=== PATIENT | male | born 2000 | race Hispanic/Latino ===

== ENCOUNTER 2022-09-29 22:02 | Emergency (ER) | payer OTHER, SELFPAY ==
--- NOTE | ~2022-09-29 | XR_ITS ---
EXAMINATION: XR chest 2V Exam Date/Time: 09/29/2022 22:15 DECK SPECIALIST HISTORY: left sided CP FOR 1 DAY Comparison: None available. RESULT: Lines, tubes, and devices: None. Lungs and pleura: Clear. Cardiomediastinal silhouette: Normal. Other: No acute osseous or upper abdominal finding. IMPRESSION: No acute cardiopulmonary process. Reviewed, dictated and finalized at location [facility]. SPECIALIST
--- NOTE | ~2022-09-29 | CT_ITS ---
CT Abdomen and Pelvis with contrast. History: Abnormal LFTs. Spiral CT of the abdomen and pelvis was performed after the administration of intravenous contrast. 1 00 cc of Omnipaque 350 was administered intravenously without complication. Dose reduction technique was used on this scan by utilizing automated exposure control and iterative reconstruction technique. The dose-length product (DLP) was 256.31 mGy-cm. Findings: Scans through the lung bases demonstrate mild atelectatic change. The liver, spleen, pancreas, gallbladder, adrenals and kidneys are within normal limits. No evidence of aortic aneurysm. No lymphadenopathy is seen. There is no evidence of bowel obstruction. There is no evidence to suggest acute appendicitis or dive rticulitis. Images through the pelvis were performed. Urinary bladder unremarkable. Prostate gland and seminal ve sicles are unremarkable. No ascites is seen. Impression: No significant abnormalities seen. Reviewed, dictated and finalized at [facility]. [employer] SALES EXECUTIVE Impression: No significant abnormalities seen.
[2022-09-29 22:07] VITALS: BP 133/80; PULSE 78; RESP 18; TEMP 36.9; O2SAT 98
--- NOTE | 2022-09-29 22:07 | ECG_ITS ---
Measurements Intervals [place] Rate: 61 P: 57 OK: 138 QRS: 71 QRSD: 122 T: 39 QT: 378 QTc: 381 Interpretive Statements SINUS RHYTHM WITH SINUS ARRHYTHMIA INCOMPLETE RIGHT BUNDLE BRANCH BLOCK BORDERLINE ECG NO PREVIOUS ECG AVAILABLE FOR COMPARISON Electronically Signed On 09-30-2022 7:48:10 DIRECTOR MACHINE by Jose Rafael Mosqueda D.O.
[2022-09-29 22:38] LABS: Basophils Absolute Auto 0.1 K/mm3 (0.0-0.1); Basophils Percent Auto 0.5 % (0.2-1.2); Eosinophils Absolute Auto 0.1 K/mm3 (0-0.3); Eosinophils Percent Auto 0.9 % (0-4.4); Hematocrit 52.9 % (42.0-52.0); Hemoglobin 18.2 g/dL (14.0-18.0); Immature Granulocyte Absolute 0.05 K/mm3 (0.00-0.031); Immature Granulocyte Percent A 0.5 % (0-0.5); Lymphocytes Absolute Auto 2.45 K/mm3 (0.9-3.2); Lymphocytes Percent Auto 25.3 % (18.3-44.2); Mean Corpuscular HGB Conc 34.4 g/dl (32-36); Mean Corpuscular Hemoglobin 30.7 pg (26-34); Mean Corpuscular Volume 89.4 fl (80-100); Mean Platelet Volume 9.4 fl (7.4-10.4); Monocytes Absolute Auto 0.6 K/mm3 (0.1-0.6); Monocytes Percent Auto 6.5 % (2.6-8.5); Neutrophils Absolute Auto 6.4 K/mm3 (1.3-6.7); Neutrophils Percent Auto 66.3 % (45.5-73.1); Platelet Count Result 231 k/mm3 (150-375); Red Blood Count 5.92 M/mm3 (4.6-6.20); Red Cell Distribution Width 12.5 % (11.5-14.5); White Blood Count 9.7 K/mm3 (4.5-10.0)
[2022-09-29 22:42] LABS: Prothrombin Time 13.1 Seconds (11.1-14.7)
[2022-09-29 22:43] LABS: Partial Thromboplastin Time 33.4 SECONDS (22.3-36.8)
[2022-09-29 22:50] LABS: Alanine Aminotransferase 65 U/L (6-50); Albumin Level 4.4 g/dL (3.5-5.1); Alkaline Phosphatase 95 U/L (38-126); Anion Gap 8 mmol/L (8-16); Aspartate Amino Transferase 97 U/L (17-59); Bilirubin,Total 2.3 mg/dL (0.2-1.3); Blood Urea Nitrogen 11 mg/dL (9-20); Calcium 9.5 mg/dL (8.4-10.2); Carbon Dioxide 30 mmol/L (22-30); Chloride 100 mmol/L (98-107); Estimated CRCL calculation 100 ml/min; Estimated Glomerular Filt Rate > 60; Glucose 110 mg/dL (65-110); Lipase 44 U/L (23-300); Potassium 3.5 mmol/L (3.4-5.0); Sodium 138 mmol/L (137-145)
[2022-09-29 23:02] LABS: Troponin I < 0.012 ng/mL (0.000-0.034)
[2022-09-30 03:23] VITALS: BP 125/82; PULSE 78; RESP 19; O2SAT 100
--- NOTE | 2022-09-30 05:07 | ED.GENADULT ---
HPI - General Adult General Chief complaint: Chest Pain Stated complaint: Chest pain Time Seen by Provider: 09/30/22 03:13 History of Present Illness HPI narrative: Patient a 22-year-old gentleman who presents the emergency department with chief complaint of chest pain. Patient reports has been having discomfort on the left side of his chest patient reports that pain is pretty mild right now reports no trauma reports no prior history of underlying cardiac disease reports no other underlying medical conditions. Patient reports no family history for young cardiac disease. Related Data Allergies Allergy/AdvReac Type Severity Reaction Status Date / Time cefdinir [From Omnicef] Allergy Rash Verified 09/29/22 22:03 Review of Systems Review of Systems: A 10 system review of systems was completed on the patient and is negative except for what is stated in the HPI. Nursing and ancillary documentation was reviewed. Exam Narrative: GENERAL: Well-appearing, well-nourished, and in no acute distress. HEAD: Normocephalic, atraumatic. EYES: PERRLA and EOMI. ENT: Nares clear, no rhinorrhea or epistaxis. Mucous membranes moist. NECK: Supple. CHEST: Clear to auscultation. No respiratory distress. HEART: Regular rate and rhythm. No murmur heard. Normal peripheral pulses. ABDOMEN: Soft, nontender, nondistended, normal active bowel sounds. EXTREMITIES: Normal range of motion. No edema. SKIN: Warm, dry, no rash. NEURO: No focal deficits. Alert and oriented x3. PSYCH: Normal mood and affect. Course Vital Signs Vital signs: Vital Signs Temperature 36.9 C 09/29/22 22:07 Pulse Rate 78 09/29/22 22:07 Respiratory Rate 18 09/29/22 22:07 Blood Pressure 133/80 09/29/22 22:07 Pulse Oximetry 98 09/29/22 22:07 Oxygen Delivery Room Air 09/29/22 22:07 Temperature 36.9 C 09/29/22 22:07 Pulse Rate 78 09/30/22 03:23 Respiratory Rate 19 09/30/22 03:23 Blood Pressure 125/82 09/30/22 03:23 Pulse Oximetry 100 09/30/22 03:23 Oxygen Delivery Room Air 09/29/22 22:07 Medical Decision Making [facility] Narrative Medical decision making narrative: EKG is sinus rhythm rate of [address] elevation or ST depression. Patient's laboratory studies showed fluid a bilirubin of 2.3 and an AST and ALT of 97 and 65 respectively. Patient has a negative troponin Given the elevated bilirubin and liver enzymes a CT scan of the abdomen pelvis was obtained to evaluate for possible biliary causes. There is no evidence of dilated bile ducts no evidence of cholecystitis or cholelithiasis. Due to this being negative the patient will be discharged home to follow-up with his primary care provider Vital Signs Vital Signs: Vital Signs Temperature 36.9 C 09/29/22 22:07 Pulse Rate 78 09/29/22 22:07 Respiratory Rate 18 09/29/22 22:07 Blood Pressure 133/80 09/29/22 22:07 Pulse Oximetry 98 09/29/22 22:07 Oxygen Delivery Room Air 09/29/22 22:07 Temperature 36.9 C 09/29/22 22:07 Pulse Rate 78 09/30/22 03:23 Respiratory Rate 19 09/30/22 03:23 Blood Pressure 125/82 09/30/22 03:23 Pulse Oximetry 100 09/30/22 03:23 Oxygen Delivery Room Air 09/29/22 22:07 Lab Data 09/29/22 22:18 09/29/22 22:18 Labs: Lab Results 09/29/22 09/29/22 09/29/22 Range/Units 22:18 22:18 22:18 WBC 9.7 (4.5-10.0) K/mm3 RBC 5.92 (4.6-6.20) M/mm3 Hgb 18.2 H (14.0-18.0) g/dL Hct 52.9 H (42.0-52.0) % MCV 89.4 (80-100) fl MCH 30.7 (26-34) pg MCHC 34.4 (32-36) g/dl RDW 12.5 (11.5-14.5) % Plt Count 231 (150-375) k/mm3 MPV 9.4 (7.4-10.4) fl Immature Gran % (Auto) 0.5 (0-0.5) % Neut % (Auto) 66.3 (45.5-73.1) % Lymph % (Auto) 25.3 (18.3-44.2) % Parmer % (Auto) 6.5 (2.6-8.5) % Eos % (Auto) 0.9 (0-4.4) % Baso % (Auto) 0.5 (0.2-1.2) % Lymph # (Auto) 2.45 (0.9-3.2) K/mm3 Parmer # (Auto) 0.6 (0.1-0.6) K/mm3 E
[2022-09-30 05:24] VITALS: BP 103/61; PULSE 60; RESP 19; O2SAT 98
== END 2022-09-30 05:26 | disposition home or self-care (01) ==
PROVIDERS: Emergency Provider Emergency Medicine
DX: R07.89 Other chest pain (principal); R74.01 Elevation of levels of liver transaminase levels
CPT/HCPCS: 36415; 71046; 74177; 80053; 83690; 84484; 85025; 85610; 85730; 93005; 99284; Q9967